=== PATIENT | male | born 1970 | race Caucasian/White ===

== ENCOUNTER 2016-07-22 23:10 | Emergency (ER) | payer BC ==
[~2016-07-22] VITALS: Ht 182.9 cm; Wt 165.4 kg
[~2016-07-22 23:10] MED LIST: COLACE100 MG PO; FLOMAX0.4 MG PO; FLUOXETINE HCL10 MG PO; IBUPROFEN800 MG PO; MOTRIN600 MG PO; NAPROSYN500 MG PO; PERCOCET 5/31 TABLET PO; PHENTERMINE H37.5 M1 PO; TAMIFLU75 MG PO; TRAMADOL HCL50 MG PO; ZITHROMAX Z-PA250 MG PO; ZOFRAN ODT4 MG PO; ZOFRAN4 MG PO
[2016-07-22 23:42] LABS: HEMATOCRIT 44.2 % (38.0-50.0); MCHC 33.9 G/DL (30.0-36.0); MCV 88.4 FL (86-99); MEAN PLAT.VOLUME 9.1 uM^3 (9.0-12.4); PLATELET COUNT 286 K/uL (156-360); RBC DIS.WIDTH-CV 11.9 % (11.8-14.6); RBC DIS.WIDTH-SD 38.3 % (39-53); WHITE BLOOD COUNT 8.6 K/uL (4.1-10.2)
[2016-07-22 23:54] LABS: CHLORIDE 105 mEq/L (99-109); POTASSIUM 3.9 mEq/L (3.7-5.4); SODIUM 143 mEq/L (136-147)
[2016-07-22 23:56] LABS: GLUCOSE 93 mg/dL (70-99)
[2016-07-22 23:57] LABS: ANION GAP 11 MEQ/L (2-14)
[2016-07-22 23:58] LABS: TOTAL BILIRUBIN 0.8 mg/dL (0.0-1.0)
[2016-07-22 23:59] LABS: ALKALINE PHOSPHATASE 111 IU/L (3-129)
[2016-07-23] LABS: GFR ESTIMATE (CALCULATED) > 59 mL/min/
[2016-07-23 00:01] LABS: UREA NITROGEN (BUN) 15 mg/dL (9-23)
[2016-07-23 00:53] LABS: ADD MIUA? YES; BILIRUBIN NEGATIVE; BLOOD LARGE; COLOR YELLOW ((YELLOW)); GLUCOSE (STRIP) NEGATIVE; KETONES NEGATIVE; LEUKOCYTES NEGATIVE; NITRITE NEGATIVE; PROTEIN (STRIP) 30; SPECIFIC GRAVITY 1.017 (1.000-1.030); UROBILINOGEN 0.2 MG/DL (0.2-1.0)
[2016-07-23 01:06] LABS: BACTERIA RARE /HPF; EPITHELIAL CELLS NONE SEEN /HPF; MUCUS 3+ /LPF; RED BLOOD CELLS TNTC /HPF (0-5); UCUL ADDED? NO; WHITE BLOOD CELLS 0-5 /HPF (0-5)
[2016-07-23] MEDS ORDERED: PERCOCET 5/31 TABLET PO (02:44)
[2016-07-23] MEDS ORDERED: ZOFRAN4 MG PO (02:44)
[2016-07-23] MEDS ORDERED: COLACE100 MG PO (02:45)
[2016-07-23 03:10] VITALS: BP 145/90
== END 2016-07-23 03:11 | disposition home or self-care (01) ==
LOC: EME 23:10 → EXP 23:10
DX: N13.2 Hydronephrosis with renal and ureteral calculous obstruction (principal); K59.00 Constipation, unspecified; R11.2 Nausea with vomiting, unspecified; Z87.442 Personal history of urinary calculi; E66.9 Obesity, unspecified; Z68.42 Body mass index [BMI] 45.0-49.9, adult; F17.220 Nicotine dependence, chewing tobacco, uncomplicated
CPT/HCPCS: 74176; 80053; 81003; 85027; 99281; 99284; J1885; J3010